=== PATIENT | female | born 1940 | race African-American/Black ===

== ENCOUNTER 2019-02-22 08:40 | Outpatient (RCR) | payer MEDICARE ==
[2019-02-08 12:38] VITALS: BP 147/75
[2019-02-08 13:05] LABS: HEMOGLOBIN 8.5 G/DL (11.5-16.0)
[2019-02-08] MEDS: DARBEPOETIN 25 MCG/ML (ARANESP) 1 ML HOSPITAL SC SCH (13:13)
[~2019-02-22] VITALS: Ht 162.6 cm; Wt 68.2 kg
[2019-02-22 08:42] VITALS: BP 169/82
[2019-02-22 09:02] LABS: HEMOGLOBIN 9.4 G/DL (11.5-16.0)
[2019-02-22] MEDS: DARBEPOETIN 25 MCG/ML (ARANESP) 1 ML HOSPITAL SC SCH (09:04)
== END 2019-02-22 09:25 | disposition home or self-care (01) ==
LOC: SDC 08:40
PROVIDERS: ATTEND Internal Medicine Nephrology
DX: N18.9 Chronic kidney disease, unspecified (principal); D63.1 Anemia in chronic kidney disease
CPT/HCPCS: 36415; 85014; 85018; 96372

== ENCOUNTER → 2019-05-04 | Outpatient (CLI) | payer MEDICARE ==
[2019-05-04 09:23] LABS: HEMOGLOBIN 10.6 G/DL (11.5-16.0); MEAN PLATELET VOLUME 9.4 FL (7.4-10.4); RED CELL DISTRIBUTION WIDTH 14.6 % (10.0-14.5); WHITE BLOOD COUNT 5.4 10^3/uL (4.3-11.0)
[2019-05-04 09:37] LABS: BILIRUBIN,URINE NEGATIVE (NEGATIVE); CLARITY,URINE CLEAR; COLOR,URINE YELLOW; GLUCOSE, URINE (UA) NEGATIVE (NEGATIVE); KETONES,URINE NEGATIVE (NEGATIVE); LEUKOCYTE ESTERASE ,URINE 2+ (NEGATIVE); NITRITE,URINE NEGATIVE (NEGATIVE); PH,URINE 6 (5-9); PROTEIN,URINE 3+ (NEGATIVE); UROBILINOGEN,URINE NORMAL (NORMAL)
[2019-05-04 09:47] LABS: ALBUMIN 3.8 GM/DL (3.2-4.5); CREATININE SERUM 3.32 MG/DL (0.60-1.30); MAGNESIUM 2.1 MG/DL (1.8-2.4); PHOSPHORUS 5.6 MG/DL (2.3-4.7); POTASSIUM 4.9 MMOL/L (3.6-5.0); URIC ACID 5.8 MG/DL (2.6-7.2)
[2019-05-04 09:57] LABS: BACTERIA,URINE TRACE /HPF; RBC,URINE RARE /HPF
== END ==
LOC: SDC 08:54
PROVIDERS: ATTEND Internal Medicine Nephrology
DX: E11.21 Type 2 diabetes mellitus with diabetic nephropathy (principal); E11.22 Type 2 diabetes mellitus with diabetic chronic kidney disease; I12.9 Hypertensive chronic kidney disease with stage 1 through stage 4 chronic kidney disease, or unspecified chronic kidney disease; N18.4 Chronic kidney disease, stage 4 (severe); D63.1 Anemia in chronic kidney disease; E87.5 Hyperkalemia; E87.2 Acidosis; N28.1 Cyst of kidney, acquired; N25.81 Secondary hyperparathyroidism of renal origin; E78.5 Hyperlipidemia, unspecified; Z68.25 Body mass index [BMI] 25.0-25.9, adult
CPT/HCPCS: 36415; 80069; 81000; 82306; 82570; 83735; 83970; 84156; 84550; 85027

== ENCOUNTER 2019-08-30 09:01 | Outpatient (RCR) | payer MEDICARE ==
[2019-06-03 13:45] VITALS: BP 179/87
[2019-06-03 14:11] LABS: HEMOGLOBIN 10.3 G/DL (11.5-16.0)
[2019-06-03] MEDS: DARBEPOETIN 25 MCG/ML (ARANESP) 1 ML HOSPITAL SC SCH (14:34)
[2019-06-17 09:04] VITALS: BP 160/72
[2019-06-17 09:23] LABS: HEMOGLOBIN 10.5 G/DL (11.5-16.0)
[2019-06-17] MEDS: DARBEPOETIN 25 MCG/ML (ARANESP) 1 ML HOSPITAL SC SCH (09:45)
[2019-07-01 07:51] LABS: BILIRUBIN,URINE NEGATIVE (NEGATIVE); CLARITY,URINE CLEAR; COLOR,URINE YELLOW; GLUCOSE, URINE (UA) NEGATIVE (NEGATIVE); KETONES,URINE NEGATIVE (NEGATIVE); LEUKOCYTE ESTERASE ,URINE 1+ (NEGATIVE); NITRITE,URINE NEGATIVE (NEGATIVE); PH,URINE 6 (5-9); PROTEIN,URINE 4+ (NEGATIVE)
[2019-07-01 08:04] LABS: BACTERIA,URINE TRACE /HPF; RBC,URINE 0-2 /HPF; WBC,URINE 0-2 /HPF
[2019-07-01 08:08] LABS: HEMOGLOBIN 11.4 G/DL (11.5-16.0); MEAN PLATELET VOLUME 9.2 FL (7.4-10.4); RED CELL DISTRIBUTION WIDTH 15.6 % (10.0-14.5); WHITE BLOOD COUNT 5.3 10^3/uL (4.3-11.0)
[2019-07-01 08:20] VITALS: BP 187/85
[2019-07-01 08:26] LABS: CALCIUM 9.1 MG/DL (8.5-10.1); CREATININE SERUM 3.62 MG/DL (0.60-1.30); MAGNESIUM 2.5 MG/DL (1.6-2.4); PHOSPHORUS 5.6 MG/DL (2.3-4.7); POTASSIUM 5.2 MMOL/L (3.6-5.0); URIC ACID 6.5 MG/DL (2.6-7.2)
[2019-07-01] MEDS: DARBEPOETIN 25 MCG/ML (ARANESP) 1 ML HOSPITAL SC SCH (10:10)
[2019-07-15 10:07] VITALS: BP 153/72
[2019-07-15 10:29] LABS: HEMOGLOBIN 10.4 G/DL (11.5-16.0)
[2019-07-15] MEDS: DARBEPOETIN 40 MCG/ML (ARANESP) HOSPITAL SC SCH (11:00)
[2019-07-29 08:34] VITALS: BP 164/88
[2019-07-29] MEDS: DARBEPOETIN 40 MCG/ML (ARANESP) HOSPITAL SC SCH (08:55)
[2019-08-11 10:20] VITALS: BP 163/77
[2019-08-11] MEDS: DARBEPOETIN 40 MCG/ML (ARANESP) HOSPITAL SC SCH (11:06)
[~2019-08-30] VITALS: Ht 162.6 cm; Wt 61.3 kg
[2019-08-30 09:27] VITALS: BP 139/68
[2019-08-30] MEDS: DARBEPOETIN 40 MCG/ML (ARANESP) HOSPITAL SC SCH (09:27)
== END 2019-09-01 | disposition home or self-care (01) ==
LOC: SDC 09:01
PROVIDERS: ATTEND Internal Medicine Nephrology
DX: E11.21 Type 2 diabetes mellitus with diabetic nephropathy (principal); I12.9 Hypertensive chronic kidney disease with stage 1 through stage 4 chronic kidney disease, or unspecified chronic kidney disease; N18.4 Chronic kidney disease, stage 4 (severe); D63.1 Anemia in chronic kidney disease; E87.5 Hyperkalemia; E87.2 Acidosis; N28.1 Cyst of kidney, acquired; N25.81 Secondary hyperparathyroidism of renal origin; R80.1 Persistent proteinuria, unspecified; E78.5 Hyperlipidemia, unspecified; Z68.24 Body mass index [BMI] 24.0-24.9, adult
CPT/HCPCS: 36415; 80069; 81000; 82570; 82652; 82728; 83540; 83735; 83970; 84156; 84550; 85014; 85018; 85027; 96372

== ENCOUNTER 2019-10-07 08:27 | Outpatient (CLI) | payer MEDICARE ==
[~2019-10-07] VITALS: Wt 61.3 kg
[2019-10-07 08:17] VITALS: BP 130/64
--- NOTE | 2019-10-07 09:14 | Diagnostic Imaging Report ---
EXAM: Portable erect AP chest at 8:49 a.m. INDICATION: Preop for port placement COMPARISON: There are no prior studies available for comparison. FINDINGS: The heart size is within normal limits. There are small curvilinear densities overlying each mid lung. These are of uncertain etiology but unlikely to be clinically significant. The lungs are generally clear. There is no sign of failure, pneumonia or of pleural effusion. The mediastinum is not widened. The osseous structures are intact. There is a total shoulder prosthesis in place on the right. There is also an orthopedic fixation screw overlying the left humeral head. Incidental note is made of multiple metallic coils overlying the left upper quadrant in the region of the spleen. IMPRESSION: 1. There is no evidence for an acute cardiopulmonary abnormality. 2. The small curvilinear densities overlying each mid lung are of uncertain etiology. If previous exams are available, they would be helpful for comparison. Dictated by: Dictated on workstation # [id number]
[2019-10-07 09:22] LABS: ALANINE AMINOTRANSFERASE < 6 U/L (0-55); ALBUMIN 3.6 GM/DL (3.2-4.5); ALKALINE PHOSPHATASE 39 U/L (40-136); BILIRUBIN,DIRECT 0.2 MG/DL (0.0-0.3); BILIRUBIN,INDIRECT 0.1 MG/DL; BILIRUBIN,TOTAL 0.3 MG/DL (0.1-1.0); TOTAL PROTEIN 6.4 GM/DL (6.4-8.2)
--- NOTE | 2019-10-07 09:58 | NUR ---
PAT ET LAB RESULTS FAXED TO [facility]
== END 2019-10-07 09:00 | disposition home or self-care (01) ==
LOC: SDC 08:27
PROVIDERS: ATTEND Nurse Practitioner
DX: J98.4 Other disorders of lung (principal); D63.1 Anemia in chronic kidney disease; E11.22 Type 2 diabetes mellitus with diabetic chronic kidney disease; E78.49 Other hyperlipidemia; I12.9 Hypertensive chronic kidney disease with stage 1 through stage 4 chronic kidney disease, or unspecified chronic kidney disease; N18.3 Chronic kidney disease, stage 3 (moderate); N25.0 Renal osteodystrophy
CPT/HCPCS: 36415; 71045; 80076

== ENCOUNTER → 2020-02-14 | Outpatient (CLI) | payer MEDICARE ==
--- NOTE | 2020-02-14 10:12 | Diagnostic Imaging Report ---
PROCEDURE: MR imaging of the brain without contrast. TECHNIQUE: Multiplanar, multisequence MR imaging of the brain was performed without contrast. Magnified images of the pituitary gland were also obtained in the sagittal and coronal planes. COMPARISON: There are no prior studies available for comparison. INDICATION: Pituitary microadenoma. FINDINGS: The pituitary gland does not appear to be enlarged and the sella is not expanded or eroded. There is no obvious mass involving the pituitary gland; however, a microadenoma could be present yet undetected because intravenous contrast was not administered. Reportedly, the patient has a markedly diminished GFR. The infundibulum is midline and the optic chiasm is undisturbed. The expected carotid flow voids are evident bilaterally. There is a well-circumscribed 1.2 x 1.4 cm rounded lesion in the posterior aspect of the ethmoid sinus on the right. This could represent a complicated retention cyst or less likely a solid mass. Direct visualization would be recommended for further evaluation. The sinuses are otherwise generally clear. The orbits are symmetrical and within normal limits. The 7th and 8th nerve complexes are unremarkable. There is no intracranial mass, shift of the midline, or hemorrhage to suggest an acute abnormality. There is no abnormal signal arising from the brain on the diffusion series to indicate an area of acute ischemia either. The ventricles are not abnormally dilated. The FLAIR series does show focal and diffuse areas of increased signal throughout the periventricular white matter and cortices of the frontal and parietal lobes bilaterally. These findings are nonspecific but could be related to encephalomalacia from microvascular ischemia. Demyelinating disease could also present in this manner although that possibility would be unlikely in a patient of this age. There is also cortical atrophy. The degree of atrophy is consistent with the patient's age. IMPRESSION: 1. There is no evidence for a pituitary mass; however, microadenoma could still be present yet undetected as intravenous contrast was not administered. 2. The rounded soft tissue density along the posterior aspect of the right ethmoid sinus is of uncertain etiology. Considerations and recommendations as above. 3. There is no acute intracranial abnormality noted. 4. The areas of altered signal in the periventricular white matter and frontal and parietal cortices bilaterally seen on the FLAIR series are nonspecific. Dictated by: Dictated on workstation # [id number]
== END ==
LOC: RAD 08:57
PROVIDERS: ATTEND Family Medicine
DX: D35.2 Benign neoplasm of pituitary gland (principal)
CPT/HCPCS: 70551

== ENCOUNTER → 2020-05-04 | Outpatient (CLI) | payer MEDICARE | LOC: LAB FS 12:23 | PROVIDERS: ATTEND Family Medicine | DX: Z01.812 Encounter for preprocedural laboratory examination (principal); Z20.828 Contact with and (suspected) exposure to other viral communicable diseases | CPT/HCPCS: 87635 ==

== ENCOUNTER 2020-07-02 05:56 | Emergency (ER) | payer MEDICARE ==
[~2020-07-02] VITALS: Ht 162 cm; Wt 63.5 kg
[2020-07-02 06:39] LABS: BASOPHILS % (AUTO) 1 % (0-10); EOSINOPHILS # (AUTO) 0.2 10^3/uL (0.0-0.3); EOSINOPHILS % (AUTO) 3 % (0-10); HEMATOCRIT 39 % (35-52); HEMOGLOBIN 12.6 G/DL (11.5-16.0); LYMPHOCYTES # (AUTO) 1.5 X 10^3 (1.0-4.0); LYMPHOCYTES % (AUTO) 27 % (12-44); MEAN CORPUSCULAR HEMOGLOBIN 29 PG (25-34); MEAN CORPUSCULAR HGB CONC 32 G/DL (32-36); MEAN CORPUSCULAR VOLUME 90 FL (80-99); MEAN PLATELET VOLUME 9.3 FL (7.4-10.4); MONOCYTES # (AUTO) 0.4 X 10^3 (0.0-1.0); MONOCYTES % (AUTO) 8 % (0-12); NEUTROPHILS # (AUTO) 3.4 X 10^3 (1.8-7.8); NEUTROPHILS % (AUTO) 62 % (42-75); PLATELET COUNT 230 10^3/uL (130-400); WHITE BLOOD COUNT 5.5 10^3/uL (4.3-11.0)
[2020-07-02 06:46] LABS: ALBUMIN 4.1 GM/DL (3.2-4.5)
[2020-07-02 06:47] LABS: POTASSIUM 4.5 MMOL/L (3.6-5.0)
[2020-07-02 06:49] LABS: PROTHROMBIN TIME PATIENT 13.4 SEC (12.2-14.7); TOTAL PROTEIN 7.4 GM/DL (6.4-8.2)
[2020-07-02 06:51] LABS: BILIRUBIN,TOTAL 0.6 MG/DL (0.1-1.0)
--- NOTE | 2020-07-02 06:51 | ED GI ---
General Chief Complaint: Rect Problems Stated Complaint: BLOODY STOOL Source of Information: Patient Exam Limitations: No Limitations History of Present Illness Date Seen by Provider: Jul 02, 2020 Time Seen by Provider: 06:24 Initial Comments Patient presents to the ER by private conveyance from home with chief complaint of bright red blood on wiping for the past 24 hours. No history of rectal bleeds. She colonoscopy with Dr. Amos in [place] one year ago which was normal. She has dialysis treatments Friday. She is on aspirin but no blood thinners. She typically takes her blood pressure medicines when she gets up in the morning but has not taken them today. She's not having any chest pain shortness of air abdominal pain. No history of significant hemorrhoids. No fissures or rectal pain. No history of stents or heart attack. Allergies and Home Medications Allergies Coded Allergies: hydrochlorothiazide (Verified Allergy, Unknown, 02/08/19) swells lips up triamterene (Verified Allergy, Unknown, 02/08/19) swells lips up enalaprilat (Unverified Adverse Reaction, Unknown, 10/07/19) Patient Home Medication List Home Medication List Reviewed: Yes Review of Systems Review of Systems Constitutional: No chills, No fever EENTM: No Blurred Vision, No Double Vision Respiratory: Denies Cough, Denies Shortness of Air Cardiovascular: Denies Chest Pain, Denies Edema Gastrointestinal: See HPI; Denies Abdominal Pain, Denies Constipated, Denies Diarrhea, Denies Nausea; Rectal Bleeding Genitourinary: Denies Burning, Denies Discharge Musculoskeletal: No back pain, No joint pain Skin: No pruritus, No rash Psychiatric/Neurological: Denies Headache, Denies Numbness All Other Systems Reviewed Negative Unless Noted: Yes Past Webgewa-Jhfpff-Bjhvnq Hx Patient Social History Alcohol Use: Denies Use Recreational Drug Use: No Smoking Status: Never a Smoker Recent Foreign Travel: No Contact w/Someone Who Travel: No Physical Exam Vital Signs Vital Signs - First Documented 07/02/20 06:13 Temp 36.6 Pulse 81 Resp 16 B/P (MAP) 212/99 (136) O2 Delivery Room Air Capillary Refill : Height/Weight/BMI Height: 5'4.00" Weight: 150lbs. 6.0oz. [id number]; BMI Method: General Appearance: WD/WN, no apparent distress HEENT: PERRL/EOMI, pharynx normal Neck: full range of motion, normal inspection Respiratory: lungs clear, normal breath sounds, no respiratory distress, no accessory muscle use Cardiovascular: normal peripheral pulses, regular rate, rhythm Gastrointestinal: non tender, soft Genital/Rectal: normal rectal tone; No decreased rectal tone; heme positive stool, other (maroon, thick bloody stool without any masses palpable in the r ectum.) Neurologic/Psychiatric: alert, normal mood/affect, oriented x 3 Skin: normal color, warm/dry Progress/Results/Core Measures Results/Orders Lab Results Laboratory Tests Test 07/02/20 06:25 Range/Units White Blood Count 5.5 4.3-11.0 10^3/uL Red Blood Count 4.34 L 4.35-5.85 10^6/uL Hemoglobin 12.6 11.5-16.0 G/DL Hematocrit 39 35-52 % Mean Corpuscular Volume 90 80-99 FL Mean Corpuscular Hemoglobin 29 25-34 PG Mean Corpuscular Hemoglobin Concent 32 32-36 G/DL Red Cell Distribution Width 17.8 H 10.0-14.5 % Platelet Count 230 130-400 10^3/uL Mean Platelet Volume 9.3 7.4-10.4 FL Neutrophils (%) (Auto) 62 42-75 % Lymphocytes (%) (Auto) 27 12-44 % Monocytes (%) (Auto) 8 0-12 % Eosinophils (%) (Auto) 3 0-10 % Basophils (%) (Auto) 1 0-10 % Neutrophils # (Auto) 3.4 1.8-7.8 X 10^3 Lymphocytes # (Auto) 1.5 1.0-4.0 X 10^3 Monocytes # (Auto) 0.4 0.0-1.0 X 10^3 Eosinophils # (Auto) 0.2 0.0-0.3 10^3/uL Basophils # (Auto) 0.0 0.0-0.1 10^3/uL Prothrombin Time 13.4 12.2-14.7 SEC INR Comment 1.0 0.8-1.4 Activated Partial Thromboplast Time 37 H 24-35 SEC Sodium Level 142 135-145 MMOL/L Potassium Level 4.5 3.6-5.0 MMOL/L Chloride Level 102 98-107 MMOL/L Carbon Dioxide Level 26 21-32 MMOL/L Anion Gap 14 5-14 MMOL/L Blood Urea Nitrogen 36 H 7-18 MG/DL Creatinine 3.66 H 0.60-1.30 MG/DL Estimat Glomerular Filtration Rate 14 BUN/Creatinine Ratio 10 Glucose Level 92 70-105 MG/DL Calcium Level 9.0 8.5-10.1 MG/DL Corrected Calcium 8.9 8.5-10.1 MG/DL Total Bilirubin 0.6 0.1-1.0 MG/DL Aspartate Amino Transf (AST/SGOT) 25 5-34 U/L Alanine Aminotransferase (ALT/SGPT) 12 0-55 U/L Alkaline Phosphatase 37 L 40-136 U/L Total Protein 7.4 6.4-8.2 GM/DL Albumin 4.1 3.2-4.5 GM/DL My Orders Orders - NOLAN DALY Occult Blood Stool (07/02/20 06:42) Vital Signs/I&O 07/02/20 06:13 Temp 36.6 Pulse 81 Resp 16 B/P (MAP) 212/99 (136) O2 Delivery Room Air Progress Progress Note : Time: 06:48 Progress Note pos fob. Hb good. referral to Gen Surgery for endoscopy. Departure Impression Primary Impression: Rectal bleeding Disposition: 01 HOME, SELF-CARE Condition: Stable Departure-Patient Inst. Decision time for Depature: 07:30 Referrals: DINESH AMOS MD (PCP) Primary Care Physician KAREN TORRES DO Patient Instructions: Bloody Stools, Adult (DC) Add. Discharge Instructions: The next step in your diagnosis is to get a colonoscopy. Call Dr. Torres Friday at 8:00 and request follow-up appointment for colonoscopy related to your bleeding. Drink plenty of fluids and increase the fiber in your diet. You do not need to discontinue the aspirin at this time however if you wish to t emporarily that would be fine. Return to the nearest ER should you experience chest pain, shortness of breath, abdominal pain or other worrisome symptoms. Continue your home medications as prescribed including the pantoprazole. Take your blood pressure medicine soon as you get home. All discharge instructions reviewed with patient and/or family. Voiced understanding. Copy Copies To 1: TORRES,NOLAN WHITEHEAD Jul 02, 2020 06:51
[2020-07-02 06:53] LABS: CREATININE SERUM 3.66 MG/DL (0.60-1.30)
--- NOTE | 2020-07-02 07:16 | NUR ---
ASSUMED CARE OF PT.
--- NOTE | 2020-07-02 07:20 | NUR ---
INTRODUCED SELF TO PT. WARM BLANKET AND CALL LIGHT GIVEN. DENIES ANY OTHER NEEDS.
--- NOTE | 2020-07-02 07:34 | NUR ---
IN TALKING TO THE PT AT THIS TIME
[2020-07-02 07:40] VITALS: BP 189/83
== END 2020-07-02 07:40 | disposition home or self-care (01) ==
LOC: EDUNIT# 05:56 → ER 05:59
DX: K62.5 Hemorrhage of anus and rectum (principal); Z79.82 Long term (current) use of aspirin; Z88.8 Allergy status to other drugs, medicaments and biological substances; Z88.1 Allergy status to other antibiotic agents
CPT/HCPCS: 36415; 80053; 82274; 85025; 85610; 85730; 86850; 86900; 86901; 93041

== ENCOUNTER → 2021-01-08 | Outpatient (CLI) | payer MEDICARE ==
--- NOTE | 2021-01-08 13:03 | Diagnostic Imaging Report ---
PROCEDURE: MRI lumbar spine. TECHNIQUE: Multiplanar, multisequence MRI of the lumbar spine was performed without contrast. INDICATION: Chronic low back pain. COMPARISON: None. FINDINGS: There are 5 lumbar-type vertebral bodies for the purposes of this report. Grade 1 anterolisthesis of L3 on L4. Modic type I degenerative endplate changes in the superior endplates of L2, L4 and L5. Advanced facet arthropathy with increased fluid in the facet joints at L3-L4 and L4-L5. No abnormal signal in the conus which terminates at L1. Normal morphology of the cauda equina. Simple appearing cysts in both kidneys are incompletely characterized on this nondedicated exam. Visualized pelvis is unremarkable. L1-L2: Disc space height loss results in mild bilateral neural foraminal narrowing. No spinal canal or lateral recess narrowing. L2-L3: No substantial spinal canal, lateral recess or neural foraminal narrowing. L3-L4: The anterolisthesis combines with the prolific facet arthropathy and ligamentous hypertrophy result in severe spinal canal stenosis. Severe bilateral neural foraminal narrowing. L4-L5: Annular disc bulge, ligamentous hypertrophy and facet arthropathy all result in severe spinal canal stenosis. Severe bilateral neural foraminal narrowing. L5-S1: Postoperative findings right hemilaminotomy. Facet arthropathy results in severe bilateral lateral recess and neural foraminal narrowing. No substantial spinal canal narrowing. IMPRESSION: 1. 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 2. Multilevel high-grade lateral recess and neural foraminal narrowing detailed above level by level. Dictated by: Dictated on workstation # [id number]
== END ==
LOC: RAD 08:04
PROVIDERS: ATTEND Family Medicine
DX: M47.816 Spondylosis without myelopathy or radiculopathy, lumbar region (principal); M47.817 Spondylosis without myelopathy or radiculopathy, lumbosacral region; M51.26 Other intervertebral disc displacement, lumbar region; M51.36 Other intervertebral disc degeneration, lumbar region; M48.061 Spinal stenosis, lumbar region without neurogenic claudication; M24.28 Disorder of ligament, vertebrae
CPT/HCPCS: 72148

== ENCOUNTER → 2021-01-08 | Outpatient (CLI) | payer MEDICARE | LOC: CARD 11:30 | PROVIDERS: ATTEND Internal Medicine Cardiovascular Disease | DX: I42.9 Cardiomyopathy, unspecified (principal); I51.7 Cardiomegaly; I34.0 Nonrheumatic mitral (valve) insufficiency | CPT/HCPCS: 93306 ==

== ENCOUNTER 2022-06-04 16:30 | Emergency (ER) | payer MEDICARE ==
[~2022-06-04] VITALS: Ht 162.6 cm; Wt 60.3 kg
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
[2022-06-04 17:09] LABS: BASOPHILS % (AUTO) 1 % (0-10); EOSINOPHILS % (AUTO) 1 % (0-10); HEMATOCRIT 28 % (35-52); HEMOGLOBIN 9.3 g/dL (11.5-16.0); LYMPHOCYTES # (AUTO) 0.9 10^3/uL (1.0-4.0); LYMPHOCYTES % (AUTO) 14 % (12-44); MEAN CORPUSCULAR HEMOGLOBIN 33 pg (25-34); MEAN CORPUSCULAR HGB CONC 34 g/dL (32-36); MEAN CORPUSCULAR VOLUME 98 fL (80-99); MEAN PLATELET VOLUME 9.7 fL (9.0-12.2); MONOCYTES # (AUTO) 0.5 10^3/uL (0.0-1.0); MONOCYTES % (AUTO) 7 % (0-12); NEUTROPHILS # (AUTO) 4.9 10^3/uL (1.8-7.8); NEUTROPHILS % (AUTO) 78 % (42-75); PLATELET COUNT 274 10^3/uL (130-400); WHITE BLOOD COUNT 6.3 10^3/uL (4.3-11.0)
[2022-06-04 17:43] LABS: CALCIUM 9.6 MG/DL (8.5-10.1)
--- NOTE | 2022-06-04 17:59 | Diagnostic Imaging Report ---
INDICATION: Shortness of breath. Time of Exam: 5:39 PM Correlation is made with prior chest of 10/07/2019. The heart is enlarged. There is some mild central congestion but no overt failure. No infiltrate is seen. There is no effusion or pneumothorax. There are postop changes of reverse shoulder arthroplasty on the right. IMPRESSION: Cardiomegaly and mild central congestion. Dictated by: Dictated on workstation # [id number]
[2022-06-04 18:12] LABS: CREATININE SERUM 4.94 MG/DL (0.60-1.30); POTASSIUM 4.1 MMOL/L (3.6-5.0)
[2022-06-04] MEDS ORDERED: HYDROcodone/APAP 5 MG/325 MG (LORTAB) TAB PO ONE (18:45)
[2022-06-04] MEDS ORDERED: morphine INJ 10 MG/ML 1ML (SYR OR VIAL) IVP STA ×2 (20:48→21:50)
--- NOTE | 2022-06-04 21:26 | Diagnostic Imaging Report ---
PROCEDURE: CT chest without contrast. TECHNIQUE: Multiple contiguous axial images were obtained through the chest without the use of intravenous contrast. Auto Exposure Controls were utilized during the CT exam to meet ALARA standards for radiation dose reduction. INDICATION: Shortness of air. Hemoptysis. COMPARISON: Chest radiograph from earlier same day. FINDINGS: Cardiomediastinal structures show mild cardiomegaly. There is no large pericardial effusion. Main pulmonary arterial trunk is prominent. It measures 3.3 cm in diameter. Findings may be seen with underlying pulmonary arterial hypertension. Note is also made of advanced diffuse calcified aortic and coronary atherosclerosis. No pathologically enlarged or morphologically abnormal adenopathy is seen within the mediastinum, edgar, nor axilla. Included portions of the lungs show small left and background moderate emphysematous changes. There is no pneumothorax. Note is made of mild septal thickening, suggestive of vascular congestion. A 5 to 6 mm subpleural micronodule is noted within the inferolateral margins of the left lower lobe. 8 mm micronodule is also noted within the subpleural posterior margins of the right upper lobe (image 43, series 3). Osseous structures show no acute abnormalities. Age-related degenerative changes are noted. No lytic or blastic bony lesions are seen. Included portions of the upper abdomen show colonic diverticulosis. Note is also made of hyperdense appearance to the liver. Postsurgical changes of the stomach are also present. IMPRESSION: 1. Mild cardiomegaly with probable pulmonary vascular congestion. 2. Small left effusion. 3. Bilateral upper lobe pulmonary micronodules. Please see below for follow-up recommendations. 4. Enlargement of the main pulmonary arterial trunk. Findings can be seen with underlying pulmonary arterial hypertension. 5. Advanced calcified aortic and coronary atherosclerosis. 6. Hyperdense appearance of the liver. Findings can be seen with long-term amiodarone usage. 7. Background moderate emphysematous changes. PULMONARY NODULE FOLLOW-UP Multiple nodules: <6 mm: * Low risk patient - no routine follow up * High risk patient - optional CT at 12 months 6-8 mm in size: * Low risk patient - Ct at 3-6 months, then consider CT at 18-24 months * High risk patient - CT at 3-6 months, then at 18-24 months >8 mm: * Low risk patient - CT at 3-6 months, then consider CT at 18-24 months * High risk patient - CT at 3-6 months, then at 18-24 months (Use most suspicious nodule as guide to management. Follow up interval may vary according to size and risk) Dictated by: Dictated on workstation # [id number]
[2022-06-04 21:55] VITALS: BP 177/84
== END 2022-06-04 21:55 | disposition short-term general hospital (02) ==
LOC: EDUNIT# 16:30 → ER 16:32
DX: S80.11XA Contusion of right lower leg, initial encounter (principal); S80.12XA Contusion of left lower leg, initial encounter; N18.6 End stage renal disease; R79.1 Abnormal coagulation profile; R09.02 Hypoxemia; R91.8 Other nonspecific abnormal finding of lung field; Z99.2 Dependence on renal dialysis; Z20.822 Contact with and (suspected) exposure to COVID-19; V89.2XXA Person injured in unspecified motor-vehicle accident, traffic, initial encounter; Y92.410 Unspecified street and highway as the place of occurrence of the external cause
CPT/HCPCS: 36415; 71045; 71250; 80048; 85025; 85379; 86141; 87636; 93005

== ENCOUNTER 2022-07-14 23:13 | Emergency (ER) | payer MEDICARE ==
[~2022-07-14] VITALS: Ht 162.6 cm; Wt 77.0 kg
[2022-07-14] MEDS ORDERED: methylPREDNISolone 125 MG (Solu-MEDROL) VIAL IV STA ×2 (23:20)
[2022-07-14] MEDS ORDERED: FUROSEMIDE 40 MG/4 ML INJ (LASIX) IV STA (23:20)
[2022-07-14] MEDS ORDERED: FUROSEMIDE 40 MG/4 ML INJ (LASIX) ONE (23:23)
[2022-07-14] MEDS ORDERED: methylPREDNISolone 125 MG (Solu-MEDROL) VIAL ONE (23:24)
[2022-07-14] MEDS ORDERED: NITROGLYCERIN 2% OINT 1 GM UNIT DOSE PACKET ONE (23:26)
[2022-07-14] MEDS ORDERED: RT-ALBUTEROL/IPRATROPIUM 3 ML (DUONEB) VIAL INH ONE (23:30)
[2022-07-14 23:41] LABS: BASOPHILS # (AUTO) 0.1 10^3/uL (0.0-0.1); BASOPHILS % (AUTO) 1 % (0-10); EOSINOPHILS # (AUTO) 0.2 10^3/uL (0.0-0.3); EOSINOPHILS % (AUTO) 2 % (0-10); HEMATOCRIT 38 % (35-52); HEMOGLOBIN 12.4 g/dL (11.5-16.0); LYMPHOCYTES # (AUTO) 3.6 10^3/uL (1.0-4.0); LYMPHOCYTES % (AUTO) 23 % (12-44); MEAN CORPUSCULAR HEMOGLOBIN 32 pg (25-34); MEAN CORPUSCULAR HGB CONC 33 g/dL (32-36); MEAN CORPUSCULAR VOLUME 97 fL (80-99); MEAN PLATELET VOLUME 10.1 fL (9.0-12.2); MONOCYTES # (AUTO) 0.8 10^3/uL (0.0-1.0); MONOCYTES % (AUTO) 5 % (0-12); NEUTROPHILS # (AUTO) 11.1 10^3/uL (1.8-7.8); NEUTROPHILS % (AUTO) 70 % (42-75); PLATELET COUNT 240 10^3/uL (130-400); WHITE BLOOD COUNT 15.9 10^3/uL (4.3-11.0)
[2022-07-14] MEDS ORDERED: NITROGLYCERIN 2% OINT 1 GM UNIT DOSE PACKET TOP ONE (23:45)
[2022-07-14] MEDS ORDERED: niCARdipine IV (Pyxis drip kit 50 MG in NS (IVPB) 230 ML IV SCH (23:45)
[2022-07-14] MEDS ORDERED: niCARdipine IV 50 MG (PYXIS DRIP KIT) ONE (23:45)
[2022-07-14 23:46] LABS: ALBUMIN 4.3 GM/DL (3.2-4.5); POTASSIUM 3.8 MMOL/L (3.6-5.0)
[2022-07-14] MEDS ORDERED: NS (IVPB) 250 ML ONE (23:46)
[2022-07-14 23:47] LABS: ABG BASE EXCESS -0.4 MMOL/L (-2.5-2.5); ABG OXYGEN SATURATION 89 % (94-100); ABG PCO2 65 MMHG (35-45); ABG PO2 72 MMHG (79-93); ABG TCO2 28.6 MMOL/L (21.0-31.0); ALLENS TEST YES-POS; INSPIRED O2 100%; PATIENT TEMP 36; VENTILATOR NO
[2022-07-14 23:47] LABS: CALCIUM 9.9 MG/DL (8.5-10.1)
[2022-07-14 23:48] LABS: TOTAL PROTEIN 8.4 GM/DL (6.4-8.2)
[2022-07-14 23:48] LABS: ABG PH 7.23 (7.37-7.43)
--- NOTE | 2022-07-14 23:48 | ED Respiratory ---
General Chief Complaint: Respiratory Problems Stated Complaint: SOB Nursing Triage Note: PT TO RM 6 VIA [facility]. PT IN NOTABLE RESP DISTRESS UPON ARRIVAL TO ED, DENIES PAIN. PT SCHEDULED FOR DIALYSIS TOMORROW, A&OX4. 20G RAC SL INITIATED BY EMS, PATENT UPON ARRIVAL TO ED. 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 NO KNOWN FEVER PT STILL MAKES URINE, NO PAIN ON URINATION HAS SWELLING TO LEGS/FEET, HANDS AND FACE O2 SAT 84% ON 2L/NC SCENE UNABLE TO OBTAIN ANY OTHER INFORMATION FROM PT AT THIS TIME ALL PMH IS FROM OLD CHART PCP: DR. DINESH RUIZ Allergies and Home Medications Allergies Coded Allergies: hydrochlorothiazide (Verified Allergy, Unknown, 02/08/19) swells lips up triamterene (Verified Allergy, Unknown, 02/08/19) swells lips up enalaprilat (Unverified Adverse Reaction, Unknown, 10/07/19) Patient Home Medication List Home Medication List Reviewed: Yes Review of Systems Review of Systems Constitutional: other (UNABLE TO OBTAIN ON ARRIVAL DUE TO RESPIRATORY DISTRESS) Respiratory: see HPI Past Ikyyakc-Lrwcrf-Allgqy Hx Patient Social History Tobacco Use?: No Use of E-Cig and/or Vaping dev: No Substance use?: No Alcohol Use?: No Immunizations Up To Date First/Initial COVID19 Vaccinat: 2020 Second COVID19 Vaccination [place]: 2020 Third COVID19 Vaccination Date: N/A COVID19 Vaccine Cardiovascular Operating Room Nurse: MODERNA Seasonal Allergies Seasonal Allergies: No Past Medical History Surgeries: Yes (BACK SX; RIGHT KNEE SURGERY;LEFT ARM A-V DIALYSIS GRAFT;R SHOULDER REPLACED) Dialysis, Hysterectomy, Joint Replacement, Orthopedic Respiratory: No Cardiac: Yes High Cholesterol, Hypertension Neurological: No 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 6.0oz. 68.350409vk; 29.00 BMI Method: General Appearance: WD/WN, other (PT IN MODERATE TO SEVERE DISTRESS ON ARRIVAL, VERY DYSPNEIC, UNABLE TO TALK, COUGHING UP WHITE FROTHY SPUTUM, PT HAS AUDIBLE WET LUNG SOUNDS HEARD FROM OUTSIDE THE ROOM) Respiratory: accessory muscle use, rales, rhonchi, other ( ABOVE) Cardiovascular: JVD, tachycardia (WITH PVC'S), other Gastrointestinal: soft Extremities: pedal edema (2-3+ EDEMA TO BILATERAL LOWER LEGS, HAS EDEMA TO HANDS AND FACE WELL) Neurologic/Psychiatric: no motor/sensory deficits, alert, oriented x 3 Skin: normal color (PT IS BLACK), warm/dry Focused Exam Lactate Level 07/14/22 23:27: Lactic Acid Level 2.22*H Lactic Acid Level Laboratory Tests Test 07/14/22 23:27 Lactic Acid Level 2.22 MMOL/L (0.50-2.00) *H Progress/Results/Core Measures Suspected Sepsis SIRS Temperature: Pulse: 123 Respiratory Rate: 36 Laboratory Tests 07/14/22 23:27: White Blood Count 15.9H Blood Pressure 242 /130 Mean: 167 07/14/22 23:27: Lactic Acid Level 2.22*H Laboratory Tests 07/14/22 23:27: Creatinine 5.83H, Platelet Count 240, Total Bilirubin 0.5 Results/Orders Lab Results Laboratory Tests Test 07/14/22 23:27 07/14/22 23:30 07/14/22 23:43 Range/Units White Blood Count 15.9 H 4.3-11.0 10^3/uL Red Blood Count 3.90 3.80-5.11 10^6/uL Hemoglobin 12.4 11.5-16.0 g/dL Hematocrit 38 35-52 % Mean Corpuscular Volume 97 80-99 fL Mean Corpuscular Hemoglobin 32 25-34 pg Mean Corpuscular Hemoglobin Concent 33 32-36 g/dL Red Cell Distribution Width 16.6 H 10.0-14.5 % Platelet Count 240 130-400 10^3/uL Mean Platelet Volume 10.1 9.0-12.2 fL Immature Granulocyte % (Auto) 1 % Neutrophils (%) (Auto) 70 42-75 % Lymphocytes (%) (Auto) 23 12-44 % Monocytes (%) (Auto) 5 0-12 % Eosinophils (%) (Auto) 2 0-10 % Basophils (%) (Auto) 1 0-10 % Neutrophils # (Auto) 11.1 H 1.8-7.8 10^3/uL Lymphocytes # (Auto) 3.6 1.0-4.0 10^3/uL Monocytes # (Auto) 0.8 0.0-1.0 10^3/uL Eosinophils # (Auto) 0.2 0.0-0.3 10^3/uL Basophils # (Auto) 0.1 0.0-0.1 10^3/uL Immature Granulocyte # (Auto) 0.1 0.0-0.1 10^3/uL Neutrophils % (Manual) 67 % Lymphocytes % (Manual) 25 % Monocytes % (Manual) 6 % Eosinophils % (Manual) 2 % Macrocytosis SLIGHT Target Cells SLIGHT Rouleau SLIGHT Sodium Level 145 135-145 MMOL/L Potassium Level 3.8 3.6-5.0 MMOL/L Chloride Level 98 98-107 MMOL/L Carbon Dioxide Level 22 21-32 MMOL/L Anion Gap 25 H 5-14 MMOL/L Blood Urea Nitrogen 75 H 7-18 MG/DL Creatinine 5.83 H 0.60-1.30 MG/DL Estimat Glomerular Filtration Rate 7 BUN/Creatinine Ratio 13 Glucose Level 141 H 70-105 MG/DL Lactic Acid Level 2.22 *H 0.50-2.00 MMOL/L Calcium Level 9.9 8.5-10.1 MG/DL Corrected Calcium 9.7 8.5-10.1 MG/DL Magnesium Level 2.7 H 1.6-2.4 MG/DL Total Bilirubin 0.5 0.1-1.0 MG/DL Aspartate Amino Transf (AST/SGOT) 24 5-34 U/L Alanine Aminotransferase (ALT/SGPT) 12 0-55 U/L Alkaline Phosphatase 43 40-136 U/L Troponin I 0.102 H <0.028 NG/ML Total Protein 8.4 H 6.4-8.2 GM/DL Albumin 4.3 3.2-4.5 GM/DL Procalcitonin 0.92 H <0.10 NG/ML Blood Gas Puncture Site L RAD Blood Gas Patient Temperature 36 Arterial Blood pH 7.23 *L 7.37-7.43 Arterial Blood Partial Pressure CO2 65 H 35-45 MMHG Arterial Blood Partial Pressure O2 72 L 79-93 MMHG Arterial Blood HCO3 27 23-27 MMOL/L Arterial Blood Total CO2 28.6 21.0-31.0 MMOL/L Arterial Blood Oxygen Saturation 89 L 94-100 % Arterial Blood Base Excess -0.4 -2.5-2.5 MMOL/L Dandre Test YES-POS Blood Gas Ventilator Setting NO Blood Gas Inspired Oxygen 100% Influenza Type A (RT-PCR) Not Detected Not Detecte Influenza Type B (RT-PCR) Not Detected Not Detecte SARS-CoV-2 RNA (RT-PCR) Not Detected Not Detecte My Orders Orders - CELESTE ROE DO Ekg Tracing (07/14/22 23:18) Ed Iv/Invasive Line Start (07/14/22 23:20) Ekg Tracing (07/14/22 23:20) O2 (07/14/22 23:20) Monitor-Rhythm Ecg Trace Only (07/14/22 23:20) Chest 1 View, Ap/Pa Only (07/14/22 23:20) Arterial Blood Gas (07/14/22 23:20) Cbc With Automated Diff (07/14/22 23:20) Comprehensive Metabolic Panel (07/14/22 23:20) Lactic Acid Analyzer (07/14/22 23:20) Magnesium (07/14/22 23:20) Procalcitonin (Pct) (07/14/22 23:20) Blood Culture (07/14/22 23:20) Sputum Culture (07/14/22 23:20) Troponin I Anu (07/14/22 23:20) Furosemide Injection (Lasix Injection) (07/14/22 23:20) Methylprednisolone Sod Succ (Solu-Medrol (07/14/22 23:20) Albuterol/Ipra Inhalation Soln (Duoneb I (07/14/22 23:30) Dexamethasone Injection (Decadron Injec (07/14/22 23:30) Rt Request For Service (07/14/22 23:20) Methylprednisolone Sod Succ (Solu-Medrol (07/14/22 23:20) Svn Small Volume Nebulizer (07/14/22 23:20) Covid 19 Inhouse Test (07/14/22 23:20) Influenza A And B By Pcr (07/14/22 23:20) Isolation Central Supply Req (07/14/22 23:20) Furosemide Injection (Lasix Injection) (07/14/22 23:23) Methylprednisolone Sod Succ (Solu-Medrol (07/14/22 23:24) Nitroglycerin Ointment (Nitrobid Ointme (07/14/22 23:26) Nitroglycerin Ointment (Nitrobid Ointme (07/14/22 23:45) Arterial Blood Gas (07/14/22 23:41) Ns (Ivpb) (Sodium C... W/Nicardipine Iv (07/14/22 23:45) Nicardipine Iv (Pyxis Drip Kit (Cardene (07/14/22 23:45) Ns (Ivpb) (Sodium Chloride 0.9%) (07/14/22 23:46) Manual Differential (07/14/22 23:27) Cefepime Injection (Maxipime Injection) (07/15/22 00:15) Lorazepam Injection (Ativan Injection) (07/15/22 00:15) Arterial Blood Draw - Obtain (07/15/22 23:45) Medications Given in ED Current Medications Medications Dose Ordered Sig/Tina Route Start Time Stop Time Status Last Admin Dose Admin Cefepime HCl 1000 mg/Sodium Chloride 50 ml @ 100 mls/hr ONCE ONCE IV 07/15/22 00:15 07/15/22 00:44 DC 07/15/22 00:23 100 MLS/HR Lorazepam 1 mg ONCE ONCE IVP 07/15/22 00:15 07/15/22 00:16 DC 07/15/22 00:14 1 MG Nitroglycerin 1 inch ONCE ONCE TOP 07/14/22 23:45 07/14/22 23:46 DC 07/14/22 23:56 1 INCH Vital Signs/I&O 07/14/22 07/14/22 07/15/22 07/15/22 23:15 23:56 00:02 00:47 Temp 36.0 Pulse 123 113 113 86 Resp 36 23 16 B/P (MAP) 242/130 (167) 235/120 120/89 Pulse Ox 97 95 O2 Delivery NIV Bilevel O2 Flow Rate 100.00 Capillary Refill : Less Than 3 Seconds Blood Pressure Mean: 167 Progress Note : Progress Note PT IMMEDIATELY PLACED ON BIPAP AND NEB TREATMENTS GIVEN GIVEN: -LASIX -SOLU-MEDROL -NITROPASTE -NICARDIPINE DRIP -CEFEPIME -ATIVAN PT WITH SIGNIFICANT IMPROVEMENT WITH BIPAP RESPIRATIONS EVEN AND MUCH LESS LABORED INCREASED AERATION AND LUNG SOUNDS ARE MUCH LESS WET SOUNDING AND IS NOT EVEN AUDIBLE WHEN STANDING AT THE BEDSIDE NOW. NO LONGER COUGHING PT IS ABLE TO TALK IN SHORT SENTENCES BP DOWN WITH NICARDIPINE DRIP PT STATES SHE FEELS MUCH BETTER NO DETERIORATION IN PT'S CONDITION DURING ER STAY ECG Initial ECG Impression Date: Jul 14, 2022 Initial ECG Impression Time: 23:22 Initial ECG Rate: 115 Initial ECG Rhythm: S.Tach Initial ECG Impression: Nonspecific Changes Diagnostic Imaging Comments CXR--CHF/FLUID OVERLOAD. PENDING RADIOLOGIST REVIEW Reviewed: Reviewed by Me Critical Care Note Critical Care Start Time: 23:15 Total Time (minutes) 30 Departure Communication (Admissions) 2336--CALLED [facility], THEY HAVE CRITICAL CARE BEDS. WILL CALL THEM BACK WITH ADDITIONAL INFORMATION 2350--CALLED [facility] HOSPITALIST/BUSINESS CONTINUITY CONSULTANT. [facility] BEING CONTACTED FOR TRANSPORT 0003--SPOKE WITH DR. THOMAS, ACCEPTS PT FOR ADMIT. 2203--[facility] HERE Impression Primary Impression: Acute respiratory failure with hypoxia and hypercapnia Additional Impressions: ESRD (end stage renal disease) on dialysis Fluid overload Hypertensive urgency Disposition: 02 XFER SHT-TRM HOSP Condition: Improved Transfer Transfer Reason: Exceeds level of care (NEED FOR ) Transfer Facility: [facility] Method of Transfer: Air ([facility]) Departure-Patient Inst. Referrals: DINESH RUZI MD (PCP/Family) Primary Care Physician CELESTE ROE DO Jul 14, 2022 23:48
[2022-07-14 23:50] LABS: BILIRUBIN,TOTAL 0.5 MG/DL (0.1-1.0)
[2022-07-14 23:52] LABS: CREATININE SERUM 5.83 MG/DL (0.60-1.30)
[2022-07-14 23:55] LABS: MAGNESIUM 2.7 MG/DL (1.6-2.4)
[2022-07-15 00:02] VITALS: BP 242/130
[2022-07-15 00:12] LABS: EOSINOPHILS % (MANUAL) 2 %; LYMPHOCYTES % (MANUAL) 25 %; MONOCYTES % (MANUAL) 6 %; NEUTROPHILS % (MANUAL) 67 %
[2022-07-15 00:13] LABS: ROULEAUX SLIGHT; TARGET CELLS SLIGHT
[2022-07-15] MEDS ORDERED: CEFEPIME INJECTION 1,000 MG in NS (IVPB) 50 ML IV ONE (00:15)
[2022-07-15] MEDS ORDERED: LORazepam INJ 2 MG/ML (ATIVAN) VIAL IVP ONE (00:15)
[2022-07-15 00:47] VITALS: BP 120/89
--- NOTE | 2022-07-15 06:03 | Diagnostic Imaging Report ---
EXAMINATION: Chest 1 view HISTORY: DYSPNEA COMPARISON: 06/04/2022 FINDINGS: Heart size and pulmonary vasculature are stable. There are increasing diffuse interstitial opacities seen throughout both lungs. Trace left pleural effusion. No pneumothorax. Right shoulder arthroplasty. IMPRESSION: 1. Increasing interstitial opacities throughout both lungs concerning for pulmonary edema or atypical infection. Dictated by: Dictated on workstation # [id number]
== END 2022-07-15 00:47 | disposition short-term general hospital (02) ==
LOC: EDUNIT# 23:13 → ER 23:15
DX: J96.01 Acute respiratory failure with hypoxia (principal); J96.02 Acute respiratory failure with hypercapnia; E87.70 Fluid overload, unspecified; I16.0 Hypertensive urgency; I12.0 Hypertensive chronic kidney disease with stage 5 chronic kidney disease or end stage renal disease; N18.6 End stage renal disease; Z99.2 Dependence on renal dialysis; Z20.822 Contact with and (suspected) exposure to COVID-19
CPT/HCPCS: 36415; 36600; 71045; 80053; 82805; 83605; 83735; 84145; 84484; 85007; 85027; 87040; 87636; 93005; 93041; 94640; 94660; 99291

== ENCOUNTER 2022-08-30 09:29 | Emergency (ER) | payer MEDICARE ==
[~2022-08-30] VITALS: Ht 162 cm; Wt 55.0 kg
--- NOTE | 2022-08-30 09:46 | ED General ---
General Stated Complaint: RECTAL BLEEDING Source of Information: Patient Exam Limitations: No Limitations History of Present Illness Date Seen by Provider: Aug 30, 2022 Time Seen by Provider: 09:41 Initial Comments Patient is a very pleasant 82-year-old female history of hypertension and end- stage renal disease on hemodialysis. Her set rider is Dr Shira Heaton. She dialyzes Friday, completed dialysis today. Patient states after dialysis she had a bowel movement but was nothing but blood. She states she had had some mild abdominal cramping. Nursing reports that they were told the patient had "black stool" for couple of days prior to this. No recent fevers or chills. No nausea or vomiting. The patient lives alone and drives herself to dialysis daily. She is quite independent. She has had previous colonoscopy, the last one was about 3 years ago. She cannot recall any significant pathology from the colonoscopy. She is not on blood thinners. No trauma. She advised the nursing staff at the dialysis center of the bloody stool and they sent her to the ER for evaluation. She does not feel lightheaded or syncopal. She has no chest pain or shortness of breath. She has not had any further bloody bowel movements. Denies hemorrhoids. She has had 4 prior children. All other review of systems reviewed and negative except as stated Timing/Duration: 4-6 Hours Severity: Severe Associated Systoms: Malaise, Other (dark stools for a couple of days) Allergies and Home Medications Allergies Coded Allergies: hydrochlorothiazide (Verified Allergy, Unknown, 02/08/19) swells lips up triamterene (Verified Allergy, Unknown, 02/08/19) swells lips up enalaprilat (Unverified Adverse Reaction, Unknown, 10/07/19) Patient Home Medication List Home Medication List Reviewed: Yes Review of Systems Review of Systems Constitutional: see HPI, malaise EENTM: no symptoms reported Respiratory: no symptoms reported Cardiovascular: no symptoms reported Gastrointestinal: melena (hematochezia) Genitourinary: no symptoms reported Musculoskeletal: other (knot to right leg) Skin: no symptoms reported All Other Systems Reviewed Negative Unless Noted: Yes Past Qkkmove-Hpzbhu-Xbhfyo Hx Immunizations Up To Date First/Initial COVID19 Vaccinat: 2020 Second COVID19 Vaccination [place]: 2021 Third COVID19 Vaccination Date: N/A Seasonal Allergies Seasonal Allergies: No Past Medical History Surgeries: Yes (BACK SX; RIGHT KNEE SURGERY;LEFT ARM A-V DIALYSIS GRAFT;R EMILI ULDER REPLACED) Dialysis, Hysterectomy, Joint Replacement, Orthopedic Respiratory: No Cardiac: Yes High Cholesterol, Hypertension Neurological: No 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 6.0oz. 68.714395ex; 29.00 BMI Method: General Appearance: No Apparent Distress, WD/WN, Other (pleasant, conversational, NAD) Eyes: Bilateral Eye Normal Inspection, Bilateral Eye PERRL, Bilateral Eye EOMI HEENT: PERRL/EOMI, Moist Mucous Membranes Neck: Normal Inspection Respiratory: Lungs Clear, Normal Breath Sounds, No Accessory Muscle Use, No Respiratory Distress Cardiovascular: Regular Rate, Rhythm, Normal Peripheral Pulses Gastrointestinal: Normal Bowel Sounds, Non Tender, Soft Rectal: Other (maroon blood noted at the rectum; no external hemorrhoids; CEFERINO - I can feel clots in the rectal vault; no masses. 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 Norm as Tested, Other (pleasant affable affect; NAD) Skin: Normal Color, Warm/Dry Progress/Results/Core Measures Suspected Sepsis SIRS Temperature: Pulse: Respiratory Rate: Laboratory Tests 08/30/22 09:40: White Blood Count 6.2 Blood Pressure / Mean: Laboratory Tests 08/30/22 09:40: Creatinine 3.25H, INR Comment 1.1, Platelet Count 275 Results/Orders Lab Results Laboratory Tests Test 08/30/22 09:40 Range/Units White Blood Count 6.2 4.3-11.0 10^3/uL Red Blood Count 3.48 L 3.80-5.11 10^6/uL Hemoglobin 10.8 L 11.5-16.0 g/dL Hematocrit 31 L 35-52 % Mean Corpuscular Volume 90 80-99 fL Mean Corpuscular Hemoglobin 31 25-34 pg Mean Corpuscular Hemoglobin Concent 35 32-36 g/dL Red Cell Distribution Width 18.5 H 10.0-14.5 % Platelet Count 275 130-400 10^3/uL Mean Platelet Volume 9.0 9.0-12.2 fL Immature Granulocyte % (Auto) 0 % Neutrophils (%) (Auto) 74 42-75 % Lymphocytes (%) (Auto) 18 12-44 % Monocytes (%) (Auto) 7 0-12 % Eosinophils (%) (Auto) 1 0-10 % Basophils (%) (Auto) 0 0-10 % Neutrophils # (Auto) 4.5 1.8-7.8 10^3/uL Lymphocytes # (Auto) 1.1 1.0-4.0 10^3/uL Monocytes # (Auto) 0.4 0.0-1.0 10^3/uL Eosinophils # (Auto) 0.0 0.0-0.3 10^3/uL Basophils # (Auto) 0.0 0.0-0.1 10^3/uL Immature Granulocyte # (Auto) 0.0 0.0-0.1 10^3/uL Prothrombin Time 14.4 12.2-14.7 SEC INR Comment 1.1 0.8-1.4 Activated Partial Thromboplast Time 41 H 24-35 SEC Sodium Level 138 135-145 MMOL/L Potassium Level 3.6 3.6-5.0 MMOL/L Chloride Level 92 L 98-107 MMOL/L Carbon Dioxide Level 29 21-32 MMOL/L Anion Gap 17 H 5-14 MMOL/L Blood Urea Nitrogen 16 7-18 MG/DL Creatinine 3.25 H 0.60-1.30 MG/DL Estimat Glomerular Filtration Rate 14 BUN/Creatinine Ratio 5 Glucose Level 100 70-105 MG/DL Calcium Level 9.3 8.5-10.1 MG/DL My Orders Orders - DEXTER SOLO MD Ed Iv/Invasive Line Start (08/30/22 09:56) Cbc With Automated Diff (08/30/22 09:56) Basic Metabolic Panel (08/30/22 09:56) Protime With Inr (08/30/22 09:56) Partial Thromboplastin Time (08/30/22 09:56) Hydrocodone/Apap 5/325 Tablet (Lortab 5 (08/30/22 13:00) Fentanyl Inj (Sublimaze Injection) (08/30/22 14:30) Vital Signs/I&O 08/30/22 08/30/22 09:35 18:15 Temp 36.2 Pulse 91 79 Resp 18 16 B/P (MAP) 133/73 (93) 155/79 Pulse Ox 94 93 O2 Delivery Room Air Capillary Refill : Progress Note : Time: 11:43 Progress Note Case was discussed with Dr. Mayberry on for the [facility]. She is apprehensive about admitting Ms. Powers due to her history of end-stage renal disease on hemodialysis. She believes she would exceed our capability for care if there were any complications during her stay with acute GI bleeding. I called to see if she could be transferred to [place] where she has had treatment in the past they are at capacity. [facility] bed availability currently. I spoke with [facility] nurse practitioner on for their hospitalist service. She accepts the patient on behalf of Dr. Daley. I spoke with Ms. Powers about the plan of care. She is agreeable. I also spoke with her son John who is agreeable. Pending bed assignment at this time, will arrange for transportation after we get a bed assignment. She remains hemodynamically stable Departure Impression Primary Impression: GI bleed Qualified Codes: K92.2 - Gastrointestinal hemorrhage, unspecified Additional Impression: ESRD (end stage renal disease) on dialysis Disposition: XFER SHT-TRM HOSP Condition: Stable Transfer Transfer Reason: Exceeds level of care Time Spoke to Accepting Phy: 11:00 Transfer Progress Notes Discussed with STACY Andino who accepts on behalf of Dr. Daley Transfer [facility]: [facility] Method of Transfer: EMS Departure-Patient Inst. Referrals: DINESH RUIZ MD (PCP/Family) Primary Care Physician DEXTER SOLO MD Aug 30, 2022 09:46
[2022-08-30 10:06] LABS: BASOPHILS % (AUTO) 0 % (0-10); EOSINOPHILS % (AUTO) 1 % (0-10); HEMATOCRIT 31 % (35-52); HEMOGLOBIN 10.8 g/dL (11.5-16.0); LYMPHOCYTES # (AUTO) 1.1 10^3/uL (1.0-4.0); LYMPHOCYTES % (AUTO) 18 % (12-44); MEAN CORPUSCULAR HEMOGLOBIN 31 pg (25-34); MEAN CORPUSCULAR HGB CONC 35 g/dL (32-36); MEAN CORPUSCULAR VOLUME 90 fL (80-99); MONOCYTES # (AUTO) 0.4 10^3/uL (0.0-1.0); MONOCYTES % (AUTO) 7 % (0-12); NEUTROPHILS # (AUTO) 4.5 10^3/uL (1.8-7.8); NEUTROPHILS % (AUTO) 74 % (42-75); PLATELET COUNT 275 10^3/uL (130-400); WHITE BLOOD COUNT 6.2 10^3/uL (4.3-11.0)
[2022-08-30 10:17] LABS: POTASSIUM 3.6 MMOL/L (3.6-5.0)
[2022-08-30 10:18] LABS: CALCIUM 9.3 MG/DL (8.5-10.1)
[2022-08-30 10:22] LABS: CREATININE SERUM 3.25 MG/DL (0.60-1.30)
[2022-08-30 10:23] LABS: INR 1.1 (0.8-1.4); PROTHROMBIN TIME PATIENT 14.4 SEC (12.2-14.7)
[2022-08-30] MEDS ORDERED: HYDROcodone/APAP 5 MG/325 MG (LORTAB) TAB PO ONE (13:00)
[2022-08-30] MEDS ORDERED: fentaNYL INJ 100 MCG/2 ML AMP IVP ONE (14:30)
[2022-08-30 18:15] VITALS: BP 155/79
== END 2022-08-30 18:30 | disposition short-term general hospital (02) ==
LOC: EDUNIT# 09:29 → ER 09:31
DX: K92.2 Gastrointestinal hemorrhage, unspecified (principal); I12.0 Hypertensive chronic kidney disease with stage 5 chronic kidney disease or end stage renal disease; N18.6 End stage renal disease; S80.11XA Contusion of right lower leg, initial encounter; Z99.2 Dependence on renal dialysis; Z28.310 Unvaccinated for COVID-19; Z87.448 Personal history of other diseases of urinary system; W22.8XXA Striking against or struck by other objects, initial encounter
CPT/HCPCS: 36415; 80048; 82274; 85025; 85610; 85730

== ENCOUNTER → 2022-11-03 | Emergency (ER) | payer MEDICARE ==
[~2022-11-03] VITALS: Ht 162 cm; Wt 55.0 kg
[~2022-11-03] MED LIST: DEXTROSE 10% IV SOLUTION 250 ML IV SCH; DEXTROSE 24 GM ORAL GEL TUBE PO ONE; HYDROcodone/APAP 5 MG/325 MG (LORTAB) TAB PO ONE; NS (IVPB) 250 ML IV ONE; PIPERACILLIN SODIUM/TAZOBACTAM 4.5 GM in NS (IVPB) 100 ML IV NR; PIPERACILLIN SODIUM/TAZOBACTAM 4.5 GM in NS (IVPB) 100 ML IV ONE; VANCOMYCIN INJECTION 0.1 MG in NS (IVPB) 250 ML IV SCH; VANCOMYCIN INJECTION 1,000 MG in NS (IVPB) 250 ML IV ONE; fentaNYL INJ 100 MCG/2 ML AMP IVP STA; morphine INJ 10 MG/ML 1ML (SYR OR VIAL) IVP STA; morphine INJ 4 MG/ML 1 ML (VIAL/SYRINGE) IVP ONE
[2022-11-03 16:59] LABS: BASOPHILS % (AUTO) 0 % (0-10); EOSINOPHILS % (AUTO) 0 % (0-10); HEMATOCRIT 32 % (35-52); LYMPHOCYTES # (AUTO) 0.8 10^3/uL (1.0-4.0); LYMPHOCYTES % (AUTO) 16 % (12-44); MEAN CORPUSCULAR HEMOGLOBIN 34 pg (25-34); MEAN CORPUSCULAR HGB CONC 34 g/dL (32-36); MEAN CORPUSCULAR VOLUME 99 fL (80-99); MEAN PLATELET VOLUME 10.1 fL (9.0-12.2); MONOCYTES # (AUTO) 0.2 10^3/uL (0.0-1.0); MONOCYTES % (AUTO) 5 % (0-12); NEUTROPHILS # (AUTO) 3.8 10^3/uL (1.8-7.8); NEUTROPHILS % (AUTO) 79 % (42-75); PLATELET COUNT 195 10^3/uL (130-400); WHITE BLOOD COUNT 4.8 10^3/uL (4.3-11.0)
[2022-11-03 17:03] LABS: ALBUMIN 3.1 GM/DL (3.2-4.5); POTASSIUM 3.8 MMOL/L (3.6-5.0)
[2022-11-03 17:04] LABS: CALCIUM 8.6 MG/DL (8.5-10.1)
[2022-11-03 17:05] LABS: TOTAL PROTEIN 6.2 GM/DL (6.4-8.2)
[2022-11-03 17:07] LABS: BILIRUBIN,TOTAL 0.4 MG/DL (0.1-1.0)
[2022-11-03 17:09] LABS: CREATININE SERUM 5.81 MG/DL (0.60-1.30)
[2022-11-03 17:12] LABS: MAGNESIUM 2.2 MG/DL (1.6-2.4)
--- NOTE | 2022-11-03 17:49 | ED General ---
General Chief Complaint: General Problems/Pain Stated Complaint: WEAKNESS Nursing Triage Note: PT ARRIVED PER EMS, PT CO OF WEAKNESS, NOT FEELING WELL. PT FSBS 64 FOR EMS, PT BS 159 UPON ARRIVAL. PT HAS SL IN R AC #20 BY EMS. D10 150CC INFUSED AND DC'D AT THIS X. PT IS AWAKE AND ALERT STATES FEELS REALLY WEAK. Source of Information: Patient Exam Limitations: No Limitations (ONRM LIAO MD) History of Present Illness Date Seen by Provider: Nov 03, 2022 Time Seen by Provider: 16:37 Initial Comments Here with complaint of not feeling well for last 2 weeks and left arm swelling that has been going on for most of that time but worse today. States she feels really weak. She is on dialysis and gets that on Friday, Friday and Friday. She did dialyze last Friday. They were trying to get her to come for evaluation on Friday but she wanted to wait it out. She states the arm is starting to get more swollen. This is on her dialysis shunt side. Denies nausea, vomiting or diarrhea. Denies chest pain or breathing problems. She does note pain to t he left arm where the swelling is distal to the elbow. Shunt is proximal in the area of the bicep. She had something similar a couple months ago and her provider wanted her to use arm elevation. She says she has done that and that has not helped. She then reports that this is been going on for 2 weeks but it apparently has been going on for 2 months but it is worse this week and the weakness is worse this week. Timing/Duration: Getting Worse, Other (2 weeks) Severity: Moderate Associated Systoms: No Chest Pain, No Cough, No Fever/Chills, No Headaches; Malaise; No Nausea/Vomiting; Shortness of Air (With activity), Weakness (NORM LIAO MD) Allergies and Home Medications Allergies Coded Allergies: hydrochlorothiazide (Verified Allergy, Unknown, 02/08/19) swells lips up triamterene (Verified Allergy, Unknown, 02/08/19) swells lips up enalaprilat (Unverified Adverse Reaction, Unknown, 10/07/19) Patient Home Medication List Home Medication List Reviewed: Yes (NORM LIAO MD) Review of Systems Review of Systems Constitutional: see HPI; No chills, No fever; weakness EENTM: No nose congestion, No throat pain Respiratory: No cough; dyspnea on exertion Cardiovascular: No chest pain; edema Gastrointestinal: No nausea, No vomiting Psychiatric/Neurological: No Symptoms Reported (NORM LIAO MD) All Other Systems Reviewed Negative Unless Noted: Yes (NORM LIAO MD) Past Tpafxax-Vqdpqg-Swouqx Hx Patient Social History Tobacco Use?: No Substance use?: No Alcohol Use?: No Pt feels they are or have been: No (NORM LIAO MD) Immunizations Up To Date Influenza Vaccine Up-to-Date: Yes; Up-to-Date First/Initial COVID19 Vaccinat: 2020 Second COVID19 Vaccination [place]: 2020 Third COVID19 Vaccination Date: N/A (NORM LIAO MD) Seasonal Allergies Seasonal Allergies: No (NORM LIAO MD) Past Medical History Surgery/Hospitalization HX: RENAL FAILURE, DIALYSIS Surgeries: Yes (BACK SX; RIGHT KNEE SURGERY;LEFT ARM A-V DIALYSIS GRAFT;R SHOULDER REPLACED) Dialysis, Hysterectomy, Joint Replacement, Orthopedic Respiratory: No Cardiac: Yes High Cholesterol, Hypertension Neurological: No 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 6.0oz. 68.723671gn; 20.00 BMI Method: General Appearance: No Apparent Distress, WD/WN HEENT: PERRL/EOMI, Pharynx Normal Neck: Non Tender, Supple Respiratory: Lungs Clear, Normal Breath Sounds Cardiovascular: Regular Rate, Rhythm, Systolic Murmur Gastrointestinal: Non Tender, Soft Back: Normal Inspection, No CVA Tenderness, No Vertebral Tenderness Extremity: Normal Range of Motion, Swelling (Left arm from elbow to the fingertips. She has shunt placed to the left upper arm. There is redness and warmth to the area of the lower arm. ) Neurologic/Psychiatric: Alert, Oriented x3 (NORM LIAO MD) Focused Exam Lactate Level 11/03/22 20:30: Lactic Acid Level 1.25 (LIV TORRES MD) Lactic Acid Level Laboratory Tests Test 11/03/22 20:30 Lactic Acid Level 1.25 MMOL/L (0.50-2.00) (LIV TORRES MD) Progress/Results/Core Measures Suspected Sepsis SIRS Temperature: Pulse: 48 Respiratory Rate: 19 Laboratory Tests 11/03/22 16:15: White Blood Count 4.8 Blood Pressure / Mean: Laboratory Tests 11/03/22 16:15: Creatinine 5.81H, Platelet Count 195, Total Bilirubin 0.4 (NORM LIAO MD) Results/Orders Lab Results Laboratory Tests Test 11/03/22 16:15 11/03/22 18:56 11/03/22 20:30 Range/Units White Blood Count 4.8 4.3-11.0 10^3/uL Red Blood Count 3.22 L 3.80-5.11 10^6/uL Hemoglobin 11.0 L 11.5-16.0 g/dL Hematocrit 32 L 35-52 % Mean Corpuscular Volume 99 80-99 fL Mean Corpuscular Hemoglobin 34 25-34 pg Mean Corpuscular Hemoglobin Concent 34 32-36 g/dL Red Cell Distribution Width 15.9 H 10.0-14.5 % Platelet Count 195 130-400 10^3/uL Mean Platelet Volume 10.1 9.0-12.2 fL Immature Granulocyte % (Auto) 0 % Neutrophils (%) (Auto) 79 H 42-75 % Lymphocytes (%) (Auto) 16 12-44 % Monocytes (%) (Auto) 5 0-12 % Eosinophils (%) (Auto) 0 0-10 % Basophils (%) (Auto) 0 0-10 % Neutrophils # (Auto) 3.8 1.8-7.8 10^3/uL Lymphocytes # (Auto) 0.8 L 1.0-4.0 10^3/uL Monocytes # (Auto) 0.2 0.0-1.0 10^3/uL Eosinophils # (Auto) 0.0 0.0-0.3 10^3/uL Basophils # (Auto) 0.0 0.0-0.1 10^3/uL Immature Granulocyte # (Auto) 0.0 0.0-0.1 10^3/uL Sodium Level 140 135-145 MMOL/L Potassium Level 3.8 3.6-5.0 MMOL/L Chloride Level 96 L 98-107 MMOL/L Carbon Dioxide Level 22 21-32 MMOL/L Anion Gap 22 H 5-14 MMOL/L Blood Urea Nitrogen 26 H 7-18 MG/DL Creatinine 5.81 H 0.60-1.30 MG/DL Estimat Glomerular Filtration Rate 7 BUN/Creatinine Ratio 4 Glucose Level 169 H 70-105 MG/DL Calcium Level 8.6 8.5-10.1 MG/DL Corrected Calcium 9.3 8.5-10.1 MG/DL Magnesium Level 2.2 1.6-2.4 MG/DL Total Bilirubin 0.4 0.1-1.0 MG/DL Aspartate Amino Transf (AST/SGOT) 25 5-34 U/L Alanine Aminotransferase (ALT/SGPT) 15 0-55 U/L Alkaline Phosphatase 43 40-136 U/L Troponin I 0.274 H <0.028 NG/ML C-Reactive Protein High Sensitivity 0.14 0.00-0.50 MG/DL B-Type Natriuretic Peptide 1025.8 H <100.0 PG/ML Total Protein 6.2 L 6.4-8.2 GM/DL Albumin 3.1 L 3.2-4.5 GM/DL Influenza Type A (RT-PCR) Not Detected Not Detecte Influenza Type B (RT-PCR) Not Detected Not Detecte SARS-CoV-2 RNA (RT-PCR) Not Detected Not Detecte Glucometer 73 70-110 MG/DL Lactic Acid Level 1.25 0.50-2.00 MMOL/L (LIV TORRES MD) My Orders Orders - LIV TORRES MD Vancomycin Injection (Vancomycin Injecti (11/03/22 20:00) Blood Culture (11/03/22 20:14) Lactic Acid Analyzer (11/03/22 20:16) Hydrocodone/Apap 5/325 Tablet (Lortab 5 (11/03/22 21:15) Morphine Injection (Morphine Injection (11/03/22 21:30) (LIV TORRES MD) Medications Given in ED Current Medications Medications Dose Ordered Sig/Tina Route Start Time Stop Time Status Last Admin Dose Admin Sodium Chloride 250 ml @ 0 mls/hr Q0M ONCE IV 11/03/22 18:45 11/03/22 18:46 DC 11/03/22 19:00 0 MLS/HR Vancomycin HCl 1000 mg/Sodium Chloride 250 ml @ 250 mls/hr ONCE ONCE IV 11/03/22 20:00 11/03/22 20:59 DC 11/03/22 21:11 250 MLS/HR (LIV TORRES MD) Vital Signs/I&O 11/03/22 16:00 Temp 36.4 Pulse 48 Resp 19 B/P (MAP) Pulse Ox 100 O2 Delivery Nasal Cannula O2 Flow Rate 2.00 (LIV TORRES MD) Vital Signs/I&O Capillary Refill : Less Than 3 Seconds (NORM LIAO MD) Progress Note : Progress Note Seen and evaluated. IV established. We will check labs including CBC, CMP, CRP, influenza and COVID screen. Monitor patient. 1832: I have reviewed labs including CBC which shows normal white count and hemoglobin of 11 which is improved from previous. CMP shows normal sodium and potassium with elevated serum creatinine greater than 5 and BUN consistent with person on dialysis. Blood glucose 169. CRP is low. No indication for infectious process. The arm swelling seems to be chronic and may be related to edema secondary to shunt placement but more pronounced due to recent significant weight loss. I talked further with the patient and she is stating that she is too weak to walk currently. She lives at home alone. She is also reporting significant back pain that she states is throbbing and she has had difficulty with diet recently as she cannot eat well due to persistent diarrhea. She states anytime she eats that the food goes right through her. She is able to tolerate broth okay. She has not been imaged in the abdomen. We will go ahead and add chest x-ray, EKG, troponin, BNP and get noncontrast CT abdomen and pelvis to rule out intra- abdominal pathology including neoplasm to the best we can. Patient did report significant weight loss over the last several months and even in the last few weeks noted. We did give fentanyl 25 mcg IV earlier which did not help her pain. I will increase that to 50 mcg IV now as her blood pressure is much better in the 160s. Friends are at bedside. I did discuss the case and findings with her son, John Leo who is in [place]. His plan is to try to get her out there to stay with them and continue dialysis and treatment but there have to secure a dialysis seat first. They are working on that currently. His number is . Patient is okay with us discussing the case with him and he would like call back. Case discussed with Dr. Torres at 1830 and he assumes care of the patient at this time pending additional labs, x-ray, EKG and CT.. (NORM LIAO MD) Progress Note : Progress Note Received the patient in signout pending her further work-up. CT of abdomen pelvis with no significant abnormalities, chest x-ray clear. Troponin elevated at 0.2 slightly up from her prior. Likely a leak considering her end-stage renal disease, but no significant bump from prior. EKG with no acute ischemic changes just showing sinus bradycardia on my interpretation. I reevaluated the patient, and her left upper extremity does look more red to me now, and she did have some transient hypotension in the 80s which improved with gentle fluids. We will give her vancomycin and treat this as if it is cellulitis. Cultures and lactic acid ordered at that time. I contacted [facility] in [place] and discussed the case with Dr. Larios. The patient will be transferred for further evaluation and management. I then called the patient's son and gave him an update to the new plan. (LIV TORRES MD) Progress Note : Progress Note 0600--ASSUMED CARE FROM DR. TORRES, PENDING TRANSFER. PT HAS BEEN ACCEPTED AT [facility], WAITING FOR BED ASSIGNMENT. PT IS RESTING QUIETLY 0708--SPOKE WITH PHARMACIST REGARDING VANCOMYCIN DOSING, WILL ALSO ADD ZOSYN, PHARMACY TO DOSE. WILL DO AM LABS AND CXR WELL 0730--PT C/O BACK PAIN --IS CHRONIC PROBLEM, SHE TAKES OXYCODONE NORMALLY, AND STATES IT DOES NOT HELP ANYMORE. WILL ORDER MORPHINE, SHE STATES IT HAS HELPED IN THE PAST. VITALS ARE STABLE, WITH BP 111 SYSTOLIC, HR IN 70'S AND O2 SATS IN UPPER 90'S ON 2L/NC. NO C/O DYSPNEA. UPDATED HER ON TRANSFER PROCESS. PT HAS HAD A MEAL TRAY LAST NIGHT, AND BREAKFAST TRAY HAS BEEN ORDERED HAVE CHECKED HER BLOOD GLUCOSE PERIODICALLY THROUGHOUT THE DAY, AND PT HAS EATEN WELL, SHE DID REQUIRE SOME ORAL GLUCOSE FOR LOW BLOOD SUGARS, AND HAS BEEN ASYMPTOMATIC WITH THEM. SHE HAS NOT VOICED ANY OTHER COMPLAINTS FOR THE REMAINDER OF SHIFT. (CELESTE ROE DO) ECG Initial ECG Impression Date: Nov 03, 2022 Initial ECG Impression Time: 19:02 Initial ECG Rate: 49 Initial ECG Rhythm: S.Castillo Comment Narrow QRS, normal axis, no significant ST changes (LIV TORRES MD) Diagnostic Imaging Diagonstic Imaging: Xray (chest), CT (abd/pelvis) Comments NAME: ROSANNA HAYS [facility] REC#: [id number] PT STATUS: REG ER : 1940 PHYSICIAN: NORM LIAO MD ADMIT DATE: 11/03/22/ER Draft Date of Exam:11/03/22 CT ABDOMEN/PELVIS WO PROCEDURE: CT abdomen and pelvis without contrast. TECHNIQUE: Multiple contiguous axial images were obtained through the abdomen and pelvis without the use of intravenous contrast. Auto Exposure Controls were utilized during the CT exam to meet ALARA standards for radiation dose reduction. DATE: November 03, 2022. COMPARISON: None. INDICATION: 82-year-old female, weakness. Abdominal pain. FINDINGS: There are limitations for evaluation of the abdominal organs, neoplastic processes, abscess, and limited evaluation of the vasculature relating to the lack of intravenous contrast. There is minimal atelectasis and/or scarring in the right middle lobe and right lower lobe dependently. The heart is not enlarged. There is no identified pericardial effusion. The liver is unremarkable in size and contour. The liver is high in attenuation. This can be seen with Amiodarone use and other processes such as hemochromatosis. The gallbladder does contain gallstones without evidence to specifically suggest acute cholecystitis. There is no identified intrahepatic or extrahepatic bile duct dilation. Limited noncontrast evaluation of the pancreas is unremarkable. The spleen is not enlarged. The adrenal glands are grossly unremarkable. There is moderate to severe atrophy of both kidneys. The urinary bladder is unremarkable. There is no identified hydronephrosis. There are calcifications associated with both kidneys which may not be stones. There is a low-attenuation left renal lesion on axial image 35 consistent with a benign cyst. There is a large volume stool in the colon. There is diverticulosis. There is no convincing evidence of acute diverticulitis. There is no identified free intraperitoneal air. There is no identified drainable fluid collection. There are extensive atherosclerotic calcifications. There is no identified abnormally enlarged lymph node in the abdomen or pelvis which meets CT size criteria for adenopathy. There is mild generalized subcutaneous edema. There are degenerative related findings at the pubic symphysis. There is avascular necrosis involving both femoral heads. There are multilevel degenerative changes of the spine. There is advanced arthritis of the left hip and moderate to severe osteoarthritis of the right hip. There is no evidence of subchondral collapse. IMPRESSION: CT abdomen and pelvis: 1. Nonspecific generalized subcutaneous edema without sizable volume ascites. 2. Cholelithiasis without evidence of acute cholecystitis. 3. Extensive atherosclerotic disease. 4. Diverticulosis without evidence of acute diverticulitis. 5. 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 No evidence of subchondral collapse. 6. Multilevel degenerative changes of the spine. Dictated on workstation # [id number] Dict: 11/03/221849 Trans: 11/03/221909 [facility] [id number] Interpreted by: LUIS MIGUEL ENCISO MD Electronically signed by: [facility] [place] NAME: ROSANNA HAYS [facility] REC#: [id number] PT STATUS: REG ER : 1940 PHYSICIAN: NORM LIAO MD ADMIT DATE: 11/03/22/ER Signed Date of Exam:11/03/22 CHEST 1 VIEW, AP/PA ONLY EXAMINATION: Chest radiograph, portable AP view. DATE: 11/03/2022 6:45 PM INDICATION: 82-year-old female, weakness. COMPARISON: July 14, 2022. FINDINGS: Heart size appears within normal limits. The aorta is unfolded. There are aortic calcifications. There is no identified pneumothorax. There is no large pleural effusion. There is no identified focal airspace consolidation. There is a total reverse right shoulder prosthesis. There is severe left glenohumeral arthritis. There is an anchor in the left humeral head. IMPRESSION: No identified acute cardiopulmonary abnormality. Dictated by: Dictated on workstation # [id number] Dict: 11/03/221846 Trans: 11/03/221900 [facility] [id number] Interpreted by: LUIS MIGUEL ENCISO MD Electronically signed by: LUIS MIGUEL ENCISO MD 11/03/221900 (LIV TORRES MD) Departure Communication (Admissions) 0701--CALLED [facility]. THEY STILL DO NOT HAVE A BED FOR PT, AND DO NOT KNOW WHEN ONE IS GOING TO BE AVAILABLE, DESPITE PT ALREADY BEING ACCEPTED BY A PHYSICIAN. THEY WILL NOT ALLOW PT TO BE TRANSFERRED TO ER, SO SHE CAN GET DIALYSIS TODAY, SHE HAS ALREADY BEEN ACCEPTED A DIRECT ADMIT. THEY STATE SHE IS ON THEIR LIST OF PATIENTS WHO ARE NEEDING A BED, AND WILL CALL US WHEN ONE BECOMES AVAILABLE. NURSING STAFF HAS INFORMED ME THAT [facility] IS [facility] AND IS NOT ACCEPTING ANY PATIENTS IN TRANSFER. 0706--CALLED [facility], AND CONFIRMED THAT THEY ARE STILL AT [facility] AND CANNOT ACCEPT ANY PATIENTS IN TRANSFER AT THIS TIME. 1220--RN HAS CONTACTED [facility], THEY ARE STILL WAITING FOR A BED TO OPEN UP. PT IS STILL ON WAIT LIST 1519--CALLED [facility], THEY STILL ARE WAITING FOR A BED TO OPEN, ANTICIPATE THERE WILL BE BEDS AVAILABLE LATER TODAY, AFTER DISMISSALS. SHE IS STILL ON THEIR WAIT LIST. 1700--[facility] HAS CALLED AND SPOKE WITH RN, THEY HAVE A BED FOR PT, AND RN HAS CONTACTED EMS, AND THEY ARE ENROUTE. 171--EMS HERE FOR TRANSPORT (CELESTE ROE DO) Impression Primary Impression: Cellulitis Qualified Codes: L03.114 - Cellulitis of left upper limb Additional Impressions: Transient hypotension ESRD (end stage renal disease) on dialysis Elevated troponin Disposition: [facility] Condition: Stable Admissions Decision to Admit/Date: Nov 03, 2022 Time/Decision to Admit Time: 19:00 (LIV TORRES MD) Transfer Transfer Reason: Exceeds level of care Transfer Progress Notes Will need to transfer due to dialysis needs. Discussed the case with Dr. Larios and she accepts for transfer at 20:17 with initial phone call at 19:51. Awaiting transport with no ability to transferred for quite some time due to needs in the [facility] Transfer Facility: [facility] Method of Transfer: EMS (LIV TORRES MD) Departure-Patient Inst. Referrals: DINESH RUIZ MD (PCP/Family) Primary Care Physician NORM LIAO MD Nov 03, 2022 17:49 LIV TORRES MD Nov 03, 2022 19:16 CELESTE ROE DO Nov 04, 2022 06:11
--- NOTE | 2022-11-03 18:50 | Diagnostic Imaging Report ---
EXAMINATION: Chest radiograph, portable AP view. DATE: 11/03/2022 6:45 PM INDICATION: 82-year-old female, weakness. COMPARISON: July 14, 2022. FINDINGS: Heart size appears within normal limits. The aorta is unfolded. There are aortic calcifications. There is no identified pneumothorax. There is no large pleural effusion. There is no identified focal airspace consolidation. There is a total reverse right shoulder prosthesis. There is severe left glenohumeral arthritis. There is an anchor in the left humeral head. IMPRESSION: No identified acute cardiopulmonary abnormality. Dictated by: Dictated on workstation # [id number]
--- NOTE | 2022-11-03 19:12 | Diagnostic Imaging Report ---
PROCEDURE: CT abdomen and pelvis without contrast. TECHNIQUE: Multiple contiguous axial images were obtained through the abdomen and pelvis without the use of intravenous contrast. Auto Exposure Controls were utilized during the CT exam to meet ALARA standards for radiation dose reduction. DATE: November 03, 2022. COMPARISON: None. INDICATION: 82-year-old female, weakness. Abdominal pain. FINDINGS: There are limitations for evaluation of the abdominal organs, neoplastic processes, abscess, and limited evaluation of the vasculature relating to the lack of intravenous contrast. There is minimal atelectasis and/or scarring in the right middle lobe and right lower lobe dependently. The heart is not enlarged. There is no identified pericardial effusion. The liver is unremarkable in size and contour. The liver is high in attenuation. This can be seen with Amiodarone use and other processes such as hemochromatosis. The gallbladder does contain gallstones without evidence to specifically suggest acute cholecystitis. There is no identified intrahepatic or extrahepatic bile duct dilation. Limited noncontrast evaluation of the pancreas is unremarkable. The spleen is not enlarged. The adrenal glands are grossly unremarkable. There is moderate to severe atrophy of both kidneys. The urinary bladder is unremarkable. There is no identified hydronephrosis. There are calcifications associated with both kidneys which may not be stones. There is a low-attenuation left renal lesion on axial image 35 consistent with a benign cyst. There is a large volume stool in the colon. There is diverticulosis. There is no convincing evidence of acute diverticulitis. There is no identified free intraperitoneal air. There is no identified drainable fluid collection. There are extensive atherosclerotic calcifications. There is no identified abnormally enlarged lymph node in the abdomen or pelvis which meets CT size criteria for adenopathy. There is mild generalized subcutaneous edema. There are degenerative related findings at the pubic symphysis. There is avascular necrosis involving both femoral heads. There are multilevel degenerative changes of the spine. There is advanced arthritis of the left hip and moderate to severe osteoarthritis of the right hip. There is no evidence of subchondral collapse. IMPRESSION: CT abdomen and pelvis: 1. Nonspecific generalized subcutaneous edema without sizable volume ascites. 2. Cholelithiasis without evidence of acute cholecystitis. 3. Extensive atherosclerotic disease. 4. Diverticulosis without evidence of acute diverticulitis. 5. 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 No evidence of subchondral collapse. 6. Multilevel degenerative changes of the spine. Dictated by: Dictated on workstation # [id number]
[2022-11-04 07:46] LABS: BASOPHILS % (AUTO) 0 % (0-10); EOSINOPHILS % (AUTO) 0 % (0-10); HEMATOCRIT 33 % (35-52); HEMOGLOBIN 11.4 g/dL (11.5-16.0); LYMPHOCYTES % (AUTO) 13 % (12-44); MEAN CORPUSCULAR HEMOGLOBIN 34 pg (25-34); MEAN CORPUSCULAR HGB CONC 34 g/dL (32-36); MEAN CORPUSCULAR VOLUME 99 fL (80-99); MEAN PLATELET VOLUME 10.2 fL (9.0-12.2); MONOCYTES # (AUTO) 0.4 10^3/uL (0.0-1.0); MONOCYTES % (AUTO) 5 % (0-12); NEUTROPHILS % (AUTO) 81 % (42-75); PLATELET COUNT 183 10^3/uL (130-400); WHITE BLOOD COUNT 7.4 10^3/uL (4.3-11.0)
[2022-11-04 08:04] LABS: BILIRUBIN,TOTAL 0.3 MG/DL (0.1-1.0); CALCIUM 8.9 MG/DL (8.5-10.1); CREATININE SERUM 6.47 MG/DL (0.60-1.30); POTASSIUM 4.1 MMOL/L (3.6-5.0)
--- NOTE | 2022-11-04 08:11 | Diagnostic Imaging Report ---
INDICATION: End-stage renal disease with weakness. Comparison 11/03/2022 FINDINGS: The lungs are clear. No failure, effusion or pneumothorax. IMPRESSION: Unremarkable frontal chest Dictated by: Dictated on workstation # [id number]
[2022-11-04 17:21] VITALS: BP 87/46
== END ==
LOC: EDUNIT# 16:03 → ER 16:04
DX: L03.114 Cellulitis of left upper limb (principal); I95.89 Other hypotension; I12.0 Hypertensive chronic kidney disease with stage 5 chronic kidney disease or end stage renal disease; N18.6 End stage renal disease; Z99.2 Dependence on renal dialysis; Z20.822 Contact with and (suspected) exposure to COVID-19
CPT/HCPCS: 36415; 71045; 74176; 80053; 82947; 83605; 83735; 83880; 84145; 84484; 85025; 86141; 87040; 87636; 93005